=== PATIENT | female | born 1985 | race Asian ===

== ENCOUNTER 2020-10-02 22:20 | Inpatient (IN) | payer OTHER ==
[2020-10-02] MEDS ORDERED: ELECTROLYTE-148 SOLN 1,000 ML IV SCH (23:15)
[2020-10-02] MEDS ORDERED: BETAMET ACET/BETAMET NA PH 30 MG/5 ML VIAL IM ONE (23:15)
[2020-10-02 23:19] VITALS: BMI 30.1
[2020-10-02] MEDS ORDERED: BETAMET ACET/BETAMET NA PH 30 MG/5 ML VIAL ONE (23:27)
[2020-10-02 23:37] LABS: BASO % 0.3 % (0-2.0); EOS % 6.4 % (0-4.5); HEMATOCRIT 34.7 % (32.4-45.2); HEMOGLOBIN 11.8 GM/dL (10.7-15.3); MCH 28.8 pg (25.7-33.7); MCHC 34.1 g/dl (32.0-36.0); MEAN CELL VOLUME 84.5 fl (80-96); MEAN PLT VOLUME 8.7 fl (7.5-11.1); NEUT % 73.3 % (42.8-82.8); PLATELET COUNT 293 10^3/uL (134-434); RBC 4.11 M/mm3 (3.60-5.2); RDW 14.4 % (11.6-15.6); WHITE BLOOD COUNT 16.6 K/mm3 (4.0-10.0)
[2020-10-02 23:39] LABS: RETICULOCYTES 2.33 % (0.5-1.5)
[2020-10-02 23:44] LABS: INR 0.99 (0.83-1.09); PROTHROMBIN TIME (PATIENT) 12.2 SEC (9.7-13.0)
[2020-10-02 23:47] LABS: ACTIVATED PTT 26.5 SECONDS (25.2-36.5)
[2020-10-03] LABS: CALCIUM 9.7 mg/dL (8.5-10.1)
[2020-10-03 00:01] LABS: BLOOD UREA NITROGEN 23.6 mg/dL (7-18)
[2020-10-03 00:03] LABS: SGOT/AST 17 U/L (15-37); SGPT/ALT 15 U/L (13-61); URIC ACID 8.3 mg/dL (2.6-7.2)
[2020-10-03 00:04] LABS: CREATININE 1.3 mg/dL (0.55-1.3)
[2020-10-03] MEDS ORDERED: hydrALAZINE HCL 10 MG TABLET PO ONE (00:04)
[2020-10-03 01:28] LABS: EPI CELLS 23 /uL (0-25.1); HYALINE CASTS 2 /uL (0-3.1); URINE APPEARANCE CLEAR; URINE BACTERIA 822 /uL (0-1359); URINE BILIRUBIN NEGATIVE (NEGATIVE); URINE COLOR YELLOW; URINE GLUCOSE (UA) NEGATIVE (NEGATIVE); URINE KETONE NEGATIVE (NEGATIVE); URINE LEUK ESTERASE NEGATIVE (NEGATIVE); URINE NITRITE NEGATIVE (NEGATIVE); URINE PROTEIN 2+ (NEGATIVE); URINE RBC 63 /uL (0-23.9); URINE UROBILINOGEN 0.2 mg/dL (0.2-1.0)
[2020-10-03 04:35] LABS: HIV INTERPRETATION NEGATIVE (NEGATIVE)
[2020-10-03] MEDS ORDERED: INSULIN (NOVOLOG) ASPART 100 UNITS/ML 10ML VIAL SQ ONE ×3 (08:45→19:39)
[2020-10-03] MEDS ORDERED: NIFEdipine E.R. 30 MG TABLET ONE (09:51)
[2020-10-03] MEDS ORDERED: LABETALOL HCL 200 MG TABLET (FP) PO SCH (10:00)
[2020-10-03] MEDS ORDERED: NIFEdipine E.R 60 MG TABLET PO SCH (10:00)
[2020-10-03] MEDS ORDERED: LABETALOL HCL 200 MG TABLET (FP) ONE (11:06)
[2020-10-03 17:23] LABS: GAMMA GLUTAMYL TRANSPEPTIDASE 10 U/L (5-85)
[2020-10-03] MEDS ORDERED: BETAMET ACET/BETAMET NA PH 30 MG/5 ML VIAL IM ONE (17:45)
[2020-10-03] MEDS ORDERED: INSULIN SLIDING SCALE (NOVOLOG) 1 VIAL SQ ONE (20:00)
[2020-10-03 21:43] VITALS: BP 144/92; PULSE 106; TEMP 98
== END 2020-10-03 21:10 | disposition home or self-care (01) | DRG 833 ==
LOC: JDEL 22:20 → JLDR 22:55 → J3W 10-03 17:00
PROVIDERS: ADMIT Obstetrics & Gynecology Maternal & Fetal Medicine; ATTEND Obstetrics & Gynecology Maternal & Fetal Medicine
DX: O10.913 Unspecified pre-existing hypertension complicating pregnancy, third trimester (principal)
CPT/HCPCS: 36415; 80048; 81003; 82962; 82977; 83010; 84450; 84460; 84550; 85025; 85032; 85045; 85610; 85730; 86762; 86780; 86850; 86900; 86901; 87340; 87389; 96372; C9803; U0003; U0005

== ENCOUNTER 2020-11-03 19:35 | Inpatient (IN) | payer OTHER ==
[2020-11-03] MEDS: DEXTROSE 5%-NORMAL SALINE 1,000 ML IV SCH (20:00)
[2020-11-03] MEDS ORDERED: hydrALAZINE HCL 10 MG TABLET PO ONE (20:57)
[2020-11-03] MEDS ORDERED: hydrALAZINE HCL 20 MG/ML VIAL ONE (20:57)
[2020-11-03] MEDS ORDERED: BETAMET ACET/BETAMET NA PH 30 MG/5 ML VIAL ONE (20:57)
[2020-11-03] MEDS ORDERED: BETAMET ACET/BETAMET NA PH 30 MG/5 ML VIAL IM ONE (20:58)
[2020-11-03 21:07] LABS: EPI CELLS 27 /uL (0-25.1); HYALINE CASTS 2 /uL (0-3.1); URINE APPEARANCE CLEAR; URINE BACTERIA 801 /uL (0-1359); URINE BILIRUBIN NEGATIVE (NEGATIVE); URINE COLOR YELLOW; URINE GLUCOSE (UA) NEGATIVE (NEGATIVE); URINE KETONE NEGATIVE (NEGATIVE); URINE LEUK ESTERASE NEGATIVE (NEGATIVE); URINE NITRITE NEGATIVE (NEGATIVE); URINE PROTEIN 4+ (NEGATIVE); URINE RBC 27 /uL (0-23.9); URINE UROBILINOGEN 0.2 mg/dL (0.2-1.0); URINE WBC 44 /uL (0-25.8)
[2020-11-03] MEDS ORDERED: hydrALAZINE HCL 20 MG/ML VIAL IVPUSH ONE (21:29)
[2020-11-03 21:49] LABS: BASO % 0.3 % (0-2.0); EOS % 2.1 % (0-4.5); HEMOGLOBIN 12.5 GM/dL (10.7-15.3); LYMPH % 13.6 % (8-40); MCH 29.2 pg (25.7-33.7); MCHC 33.8 g/dl (32.0-36.0); MEAN CELL VOLUME 86.4 fl (80-96); MEAN PLT VOLUME 9.2 fl (7.5-11.1); MONO % 6.8 % (3.8-10.2); NEUT % 77.2 % (42.8-82.8); PLATELET COUNT 296 10^3/uL (134-434); RBC 4.29 M/mm3 (3.60-5.2); RDW 14.7 % (11.6-15.6); RETICULOCYTES 3.01 % (0.5-1.5); WHITE BLOOD COUNT 16.7 K/mm3 (4.0-10.0)
[2020-11-03 21:54] LABS: INR 0.93 (0.83-1.09); PROTHROMBIN TIME (PATIENT) 11.3 SEC (9.7-13.0)
[2020-11-03 22:13] VITALS: BMI 30.2
[2020-11-03] MEDS: LABETALOL HCL 200 MG TABLET (FP) PO SCH (22:14)
[2020-11-03] MEDS ORDERED: LABETALOL HCL 200 MG TABLET (FP) ONE (22:15)
[2020-11-03 22:16] LABS: CALCIUM 9.6 mg/dL (8.5-10.1)
[2020-11-03 22:20] LABS: CREATININE 1.4 mg/dL (0.55-1.3); URIC ACID 8.6 mg/dL (2.6-7.2)
[2020-11-04] MEDS ORDERED: INSULIN (NOVOLOG) ASPART 100 UNITS/ML 10ML VIAL SQ ONE ×2 (02:30→06:13)
[2020-11-04] MEDS: NIFEdipine E.R 60 MG TABLET PO SCH ×2 (06:30→11:52)
[2020-11-04] MEDS ORDERED: NIFEdipine E.R. 30 MG TABLET ONE (06:31)
[2020-11-04] MEDS ORDERED: CITRIC ACID/SODIUM CITRATE 30 ML UNIT-DOSE CUP PO ONE (08:00)
[2020-11-04] MEDS ORDERED: ONDANSETRON 4 MG/2 ML VIAL ONE ×2 (08:41→09:00)
[2020-11-04] MEDS ORDERED: KETOROLAC TROMETHAMINE 30 MG/1 ML VIAL ONE (08:41)
[2020-11-04] MEDS ORDERED: morphine SULFATE/PF 0.5 MG/ML (2cc Syringe - QUVA) ONE (08:41)
[2020-11-04] MEDS ORDERED: OXYTOCIN 20 UNITS in 0.9% NS 20 UNIT/1,000 ML INFUS.BAG IV ONE ×2 (08:42→13:35)
[2020-11-04] MEDS ORDERED: PHENYLEPHRINE HCL 10 MG/1 ML SINGLE DOSE VIAL ONE (08:42)
[2020-11-04] MEDS ORDERED: PROPOFOL 20 ML ONE (08:47)
[2020-11-04] MEDS ORDERED: ePHEDrine SULFATE 50 MG/1 ML AMPULE ONE ×2 (08:47)
[2020-11-04] MEDS ORDERED: ceFAZolin SODIUM 1 GM VIAL ONE (09:00)
[2020-11-04 10:05] LABS: CORD BASE EXCESS -6.8 mmol/L (0-2); CORD HCO3 19.7 mmHg (20-29); CORD PCO2 42.7 mmHg (30-78); CORD pH 7.282 (7.14-7.44)
[2020-11-04 10:07] LABS: CORD HCO3 17.1 mmHg (20-29); CORD PCO2 34.2 mmHg (30-78); CORD pH 7.316 (7.14-7.44)
[2020-11-04] MEDS ORDERED: OXYTOCIN 20 UNITS in 0.9% NS 1000 ML INFUS.BAG IV ONE (11:50)
[2020-11-04] MEDS: LABETALOL HCL 200 MG TABLET (FP) PO SCH ×2 (11:51→21:57)
[2020-11-04] MEDS ORDERED: MAGNESIUM SULF 50% (8.12 MEQ/2 ML-1 GM VIAL) IVPB ONE (12:08)
[2020-11-04] MEDS ORDERED: MAGNESIUM SULFATE IN WATER 2 GM/50 ML IVPB IVPB ONE (12:30)
[2020-11-04] MEDS ORDERED: MAGNESIUM SULFATE 20GM/500ML - 20 GM/500 ML INFUS.BAG IVPB SCH (13:00)
[2020-11-04] MEDS ORDERED: MAGNESIUM SULFATE 20GM/500ML - 20 GM/500 ML INFUS.BAG ONE (13:34)
[2020-11-04] MEDS ORDERED: LABETALOL HCL 200 MG TABLET (FP) ONE (21:48)
[2020-11-04] MEDS: DEXTROSE 5%-NORMAL SALINE 1,000 ML IV SCH (23:15)
[2020-11-05] MEDS ORDERED: INSULIN (NOVOLOG) ASPART 100 UNITS/ML 10ML VIAL SQ ONE ×2 (02:01→10:07)
[2020-11-05] MEDS ORDERED: INSULIN SLIDING SCALE (NOVOLOG) 1 VIAL SQ ONE (02:24)
[2020-11-05] MEDS: NIFEdipine E.R 60 MG TABLET PO SCH ×2 (08:03→11:15)
[2020-11-05 08:54] LABS: BASO % 0.4 % (0-2.0); EOS % 0.5 % (0-4.5); HEMOGLOBIN 9.8 GM/dL (10.7-15.3); LYMPH % 9.8 % (8-40); MCH 29.3 pg (25.7-33.7); MCHC 33.9 g/dl (32.0-36.0); MEAN CELL VOLUME 86.4 fl (80-96); MEAN PLT VOLUME 7.9 fl (7.5-11.1); MONO % 5.7 % (3.8-10.2); NEUT % 83.6 % (42.8-82.8); PLATELET COUNT 270 10^3/uL (134-434); RBC 3.36 M/mm3 (3.60-5.2)
[2020-11-05] MEDS: LABETALOL HCL 200 MG TABLET (FP) PO SCH ×2 (10:06→22:19)
[2020-11-05] MEDS: INSULIN (NOVOLOG) ASPART 100 UNITS/ML 10ML VIAL SQ SCH ×2 (11:34→17:58)
[2020-11-05] MEDS: IBUPROFEN 600 MG TABLET (FP) PO PRN ×2 (11:45→19:55)
[2020-11-05] MEDS: SIMETHICONE 80 MG TAB.CHEW (FP) PO PRN ×2 (11:46→19:55)
[2020-11-05] MEDS ORDERED: BISACODYL 10 MG SUPP.RECT RC PRN (11:52)
[2020-11-05] MEDS: INSULIN (LEVEMIR) 100 UNITS/ML UNITS SQ SCH (22:23)
[2020-11-06] MEDS: INSULIN (NOVOLOG) ASPART 100 UNITS/ML 10ML VIAL SQ SCH ×3 (08:24→17:03)
[2020-11-06] MEDS: IBUPROFEN 600 MG TABLET (FP) PO PRN ×2 (09:23→21:12)
[2020-11-06] MEDS: LABETALOL HCL 200 MG TABLET (FP) PO SCH ×2 (09:24→21:08)
[2020-11-06] MEDS: SIMETHICONE 80 MG TAB.CHEW (FP) PO PRN ×2 (09:24→21:12)
[2020-11-06] MEDS: NIFEdipine E.R 60 MG TABLET PO SCH (09:24)
[2020-11-06] MEDS: INSULIN (LEVEMIR) 100 UNITS/ML UNITS SQ SCH (21:08)
[2020-11-07 06:32] VITALS: TEMP 98.2
[2020-11-07 07:19] LABS: BASO % 0.4 % (0-2.0); EOS % 3.3 % (0-4.5); HEMOGLOBIN 10.5 GM/dL (10.7-15.3); LYMPH % 19.3 % (8-40); MCH 29.2 pg (25.7-33.7); MCHC 33.9 g/dl (32.0-36.0); MEAN CELL VOLUME 86.3 fl (80-96); MEAN PLT VOLUME 7.7 fl (7.5-11.1); MONO % 6.6 % (3.8-10.2); NEUT % 70.4 % (42.8-82.8); PLATELET COUNT 313 10^3/uL (134-434); RBC 3.59 M/mm3 (3.60-5.2); RDW 14.8 % (11.6-15.6); WHITE BLOOD COUNT 16.2 K/mm3 (4.0-10.0)
[2020-11-07] MEDS: NIFEdipine E.R 60 MG TABLET PO SCH ×2 (08:19→12:31)
[2020-11-07] MEDS: INSULIN (NOVOLOG) ASPART 100 UNITS/ML 10ML VIAL SQ SCH ×2 (08:20→11:49)
[2020-11-07 10:41] VITALS: BP 114/70; PULSE 92
[2020-11-07] MEDS: LABETALOL HCL 200 MG TABLET (FP) PO SCH (12:31)
== END 2020-11-07 12:45 | disposition home or self-care (01) | DRG 787 ==
LOC: JDEL 19:35 → NEWFOCUS 19:35 → JLDR 20:05 → J3W 11-05 03:01
PROVIDERS: ADMIT Obstetrics & Gynecology Maternal & Fetal Medicine; ATTEND Obstetrics & Gynecology Maternal & Fetal Medicine
PROC: 10D00Z1 Extraction of Products of Conception, Low, Open Approach (ICD-10-PCS; principal; 2020-11-04)
DX: O34.219 Maternal care for unspecified type scar from previous cesarean delivery (principal); O10.92 Unspecified pre-existing hypertension complicating childbirth; O36.5930 Maternal care for other known or suspected poor fetal growth, third trimester, not applicable or unspecified; O24.424 Gestational diabetes mellitus in childbirth, insulin controlled; Z3A.35 35 weeks gestation of pregnancy; Z37.0 Single live birth
CPT/HCPCS: 36415; 36600; 71046-TC-FY; 80048; 81003; 82803; 82962; 82977; 83010; 84450; 84460; 84550; 85025; 85045; 85610; 85730; 86780; 86850; 86900; 86901; 88307-TC; 96372; C9803; U0003; U0005